=== PATIENT | male | born 1970 | race Caucasian/White ===

== ENCOUNTER 2017-05-13 03:15 | Inpatient (IN) | payer OTHER, MEDICAID ==
[~2017-05-13] VITALS: Ht 154.9 cm; Wt 60.3 kg
[2017-05-13 03:21] VITALS: BP 139/105
[2017-05-13] MEDS ORDERED: METO50TE2 PO (03:25)
--- NOTE | 2017-05-13 03:28 | NUR ---
TO ER BED 10
[2017-05-13] MEDS ORDERED: ACETAMINOPHEN 325 MG TAB PO ONE (03:30)
[2017-05-13] MEDS ORDERED: ACETAMINOPHEN 325 MG TAB ONE (03:32)
--- NOTE | 2017-05-13 03:35 | NUR ---
46 Y/O M W/C/O BODY ACHES, FEVER, AND COUGH X 2 DAYS. MED HX CHRONIC RENAL FAILURE, AND HTN. PT RECEIVES DIALYSIS M/W/F, SHUNT TO L ARM. CAM FRANCO MADE AWARE.
[2017-05-13 03:44] LABS: HEMATOCRIT 51.2 % (36-52); HEMOGLOBIN 16.6 g/dL (12.0-18.0); MEAN CORPUSCULAR HEMOGLOBIN 31 pg (27-31); MEAN CORPUSCULAR HGB CONC 33 g/dL (33-37); MEAN CORPUSCULAR VOLUME 96 fL (80-94); PLATELET COUNT (AUTO) 163 K/uL (140-450); RED BLOOD CELL COUNT(AUTO) 5.32 MIL/uL (4.20-6.10); RED CELL DISTRIBUTION WIDTH 14.9 % (11.6-13.7)
--- NOTE | 2017-05-13 03:50 | NUR ---
X-RAY AT BEDSIDE.
[2017-05-13 03:57] LABS: ALBUMIN 3.6 g/dL (3.4-5.0); ANION GAP 18.5 (8-16); CARBON DIOXIDE 26.7 mmol/L (21-32); POTASSIUM 5.2 mmol/L (3.5-5.1); TOTAL BILIRUBIN 0.9 mg/dL (0.0-1.0)
[2017-05-13 04:09] LABS: WHITE BLOOD COUNT (AUTO) 15.4 K/uL (4.8-10.8)
[2017-05-13 04:10] LABS: LYMPHOCYTES % (MANUAL) 7 % (20-46); MONOCYTES % (MANUAL) 5 % (5-12)
[2017-05-13 04:12] LABS: CREATININE 11.5 mg/dL (0.7-1.3)
[2017-05-13] MEDS ORDERED: SODIUM POLYSTYRENE 15 GM/60 ML UDBTL PO ONE (04:35)
[2017-05-13] MEDS ORDERED: INSULIN HUMAN REGULAR 100 UNITS/ML 10 ML VIAL IVP ONE (04:35)
[2017-05-13] MEDS ORDERED: DEXTROSE 50% 50 ML SYR IVP ONE ×2 (04:35→04:52)
[2017-05-13] MEDS ORDERED: IBUPROFEN 800 MG TAB PO ONE (04:35)
[2017-05-13] MEDS ORDERED: ALBUTEROL 0.083% 2.5 MG/3 ML NEBU INH ONE ×2 (04:35→05:45)
[2017-05-13] MEDS ORDERED: SEVE400T PO (04:44)
[2017-05-13] MEDS ORDERED: VALS80TA2 PO (04:44)
[2017-05-13] MEDS ORDERED: LEVOFLOXACIN 750 MG/D5W PREMIX 150 ML IV ONE ×2 (04:45→04:53)
[2017-05-13] MEDS ORDERED: NACL 0.9% 500 ML IV ONE (04:45)
--- NOTE | 2017-05-13 04:50 | NUR ---
PT UNABLE TO PRODUCE URINE. CAM FRANCO MADE AWARE.
[2017-05-13] MEDS ORDERED: IBUPROFEN 800 MG TAB ONE (04:51)
[2017-05-13] MEDS ORDERED: SODIUM POLYSTYRENE 15 GM/60 ML UDBTL ONE (04:53)
[2017-05-13] MEDS ORDERED: PROMETH/CODEINE 6.25-10MG/5ML 5 ML UDC PO ONE (05:10)
[2017-05-13] MEDS ORDERED: PROMETH/CODEINE 6.25-10MG/5ML 5 ML UDC ONE (05:13)
[2017-05-13] MEDS ORDERED: ONDANSETRON 4 MG/2 ML VIAL IVP PRN (05:15)
[2017-05-13] MEDS ORDERED: HYDROcodone/APAP 7.5/325 MG 1 TAB PO PRN (05:15)
[2017-05-13] MEDS ORDERED: ALBUTEROL SULFATE/IPRATROPIU 3 ML SOL IH PRN (05:20)
--- NOTE | 2017-05-13 05:29 | NUR ---
PT TRANSFERED TO FLOOR VIA [facility], ACCOMPANIED BY RN AND EMT.
--- NOTE | 2017-05-13 05:32 | NUR ---
REPORT GIVEN TO ELAN JOHNSTON AT BEDSIDE.
[2017-05-13 05:40] VITALS: BP 141/85
--- NOTE | 2017-05-13 05:40 | NUR ---
Admitted from ER, with chief complaint of COUGH, SUBJECTIVE FEVER, GEN WEAKNESS, BODY ACHES X2 DAYS, DX PNA. [employer] PI DEVELOPER SERVICE USED FOR TAJIK, YAMIL [id number]. 46 y/o, Male, Cooperative, AOX4, AMBULATES INDEPENDENTLY, ABLE TO VERBALIZE NEEDS. MANAGER MARKETING COMMUNICATION IN PLACE. PT DENIES CHEST PAIN, SOB OR S/S OF ACUTE DISTRESS. SPO2 98% ON ROOM AIR, RR 18 EVEN AND UNLABORED. BP 141/85, HR 115. SKIN INTACT, L AV FISTULA NOTED, BRUIT AND THRILL NOTED. IV ACCESS ASYMPTOMATIC, PATENT AND INTACT, IVPB FROM ER STILL INFUSING. DISCUSSED PLAN OF CARE WITH PT. PT REPORTS ANURIA, UNABLE TO COLLECT URINE SAMPLE. PT INSTRUCTED TO COLLECT SPUTUM SAMPLE. PT INSTRUCTED TO USE IS 10X PER HOUR. PT VERBALIZED UNDERSTANDING. oriented to call light, bed, phone,television, bathroom, smoking policy, visiting hours, procedures, ID bracelet on. Belongings list checked. ALL NEEDS MET. SAFETY MEASURES ENSURED. CALL LIGHT WITHIN REACH.
[2017-05-13 06:19] LABS: PROTHROMBIN TIME 12.6 secs (10.8-13.4)
--- NOTE | 2017-05-13 06:30 | NUR ---
CALLED DR GILL, CLARIFIED ORDER OF HYDRALAZINE 10MG IVP ONCE, REPORTED THAT PT'S BP IS 141/85, HR 115; DISCUSSED PT'S HOME MEDS. STATED TO NOT GIVE DUE MED HYDRALAZINE IVP ONCE, MD TO CONTINUE PT'S HOME MEDS.
[2017-05-13 06:44] LABS: FREE T4 (FREE THYROXINE) 1.02 ng/dL (0.76-1.46); PHOSPHORUS 5.3 mg/dL (2.5-4.9); THYROID STIMULATING HORMONE 0.32 uIU/mL (0.34-3.74)
[2017-05-13 07:00] LABS: CHOL/HDL RATIO 2.5 (1-4.5)
--- NOTE | 2017-05-13 07:10 | NUR ---
ENDORSED PLAN OF CARE TO AM NURSE. CONDITION STABLE.
[2017-05-13] MEDS ORDERED: hydrALAZINE 20 MG/ML VIAL IVP SCH (07:20)
--- NOTE | 2017-05-13 07:30 | NUR ---
REPORT RECEIVED FROM ARMORED CAR GUARD AND DRIVER NURSE. PT IS AWAKE, ALERT AND OX4, AMBULATES INDEPENDENTLY, ABLE TO VERBALIZE NEEDS. TELE MONITOR IN PLACE. PT DENIES PAIN. NO S/S OF ACUTE DISTRESS NOTED ON ROOM AIR. SKIN INTACT. LEFT AV FISTULA NOTED, BRUIT AND THRILL NOTED. IV CATH NOTED ON THE RIGHT FA 20G, PATENT AND INTACT. DISCUSSED PLAN OF CARE WITH PT, PT VERBALIZED UNDERSTANDING. SAFETY MEASURES ENSURED. CALL LIGHT WITHIN REACH.
[2017-05-13] MEDS ORDERED: ALBUTEROL SULFATE/IPRATROPIU 3 ML SOL IH ONE ×2 (07:55→13:12)
[2017-05-13 08:00] VITALS: BP 133/96
[2017-05-13] MEDS: ALBUTEROL SULFATE/IPRATROPIU 3 ML SOL IH SCH ×3 (08:07→19:35)
[2017-05-13] MEDS: DOCUSATE SODIUM 100 MG GELCAP PO SCH ×2 (09:00→20:07)
[2017-05-13] MEDS ORDERED: VALSARTAN 80 MG TAB PO SCH (09:00)
[2017-05-13] MEDS ORDERED: SEVELAMER CARBONATE 800 MG TAB PO SCH (09:00)
[2017-05-13] MEDS ORDERED: METOPROLOL SUCCINATE 50 MG TABER PO SCH (09:00)
--- NOTE | 2017-05-13 09:11 | NUR ---
PATIENT HAS BEEN SCREENED AND CATEGORIZED MODERATE NUTRITION RISK. PATIENT WILL BE SEEN WITHIN 3-5 DAYS OF ADMISSION. 05/15/17-05/17/[address]
[2017-05-13] MEDS ORDERED: METOPROLOL SUCCINATE 50 MG TABER PO ONE (09:48)
[2017-05-13] MEDS ORDERED: DOCUSATE SODIUM 100 MG GELCAP PO ONE (09:48)
[2017-05-13] MEDS ORDERED: VALSARTAN 80 MG TAB ONE (09:49)
[2017-05-13] MEDS ORDERED: LACTOBACILLUS RHAMNOSUS GG 1 EACH CAP ONE (09:49)
[2017-05-13] MEDS: LACTOBACILLUS RHAMNOSUS GG 1 EACH CAP PO SCH (09:55)
--- NOTE | 2017-05-13 09:55 | NUR ---
EXPLAINED TO PT THAT SPUTUM SAMPLE AND URINE SAMPLE ARE NEEDED FROM HIM. PT DENIES URINATION AND STATED NO PEE-PEE.
[2017-05-13 12:00] VITALS: BP 127/91
--- NOTE | 2017-05-13 12:30 | NUR ---
SPUTUM SAMPLE COLLECTED AND SENT TO LAB.
[2017-05-13] MEDS ORDERED: SEVELAMER CARBONATE 800 MG TAB PO ONE (12:31)
[2017-05-13] MEDS: SEVELAMER CARBONATE 800 MG TAB PO SCH ×3 (12:32→20:07)
[2017-05-13] MEDS: CLINDAMYCIN 600 MG in DEXTROSE 5% 50 ML IV SCH ×3 (12:32→23:15)
--- NOTE | 2017-05-13 15:35 | NUR ---
INCENTIVE SPIROMETER TEACHING DONE. PT VERBALIZED UNDERSTANDING. PT HAD EXCELLENT RETURN DEMONSTRATION.
[2017-05-13 16:00] VITALS: BP 139/97
[2017-05-13] MEDS: ACETAMINOPHEN 325 MG TAB PO PRN (16:59)
--- NOTE | 2017-05-13 19:20 | NUR ---
SPOKE WITH DIALYSIS NURSE ANTONIO OVER THE PHONE REGARDING HEMODIALYSIS ORDER PUT IN BY DR. GARCIA WITHOUT DETAIL. ANTONIO STATED SHE WILL CONTACT DR GARCIA REGARDING THE DETAIL OF THE ORDER.
--- NOTE | 2017-05-13 19:30 | NUR ---
ENDORSED PLAN OF CARE TO WREATH INSPECTOR NURSE. PT IN CONDITION STABLE.
--- NOTE | 2017-05-13 19:31 | NUR ---
Patient's Plan of Care was discussed and reviewed with MENTAL HEALTH TECHNICIAN: LAURENCE ALCARAZ
--- NOTE | 2017-05-13 19:32 | NUR ---
PATIENT IS CURRENTLY AWAKE ALERT ORIENTED TAMAZIGHT SPEAKING RESTING IN BED VITALS CHECKED WNL AT THIS TIME PATIENT HAS NO COMPLAINS OF PAIN AND DISCOMFORT.PATIENT IS ALSO AMBULATORY BUT ENCOURAGED TO ASK FOR HELP IF HE NEEDS TO. PATIENT INSTRUCTED TO GIVE SPUTUM C/S WHEN HE IS ABLE TO COUGH UP SOME PHLEGM PATIENT VERBALIZES UNDERSTANDING SPECIMEN CONTAINER CUP AT BEDSIDE. PATIENT EDUCATED TO USE THE INCENTIVE SPIROMETER RETURN DEMO DONE AND PATIENT VERBALIZES UNDERSTANDING.CALL LIGHT WITHIN REACH. WILL CONTINUE TO MONITOR.
[2017-05-13 20:00] VITALS: BP 104/51
[2017-05-13] MEDS: METOPROLOL 50 MG TAB PO SCH (20:07)
--- NOTE | 2017-05-13 23:26 | NUR ---
I CALLED RESIDENT HENRY MCFARLAND AND INFORMED HER THAT PATIENT VACCINATION ASSESSMENT ITS CHECKED WERE IT SAYS PATIENT QUALIFIES FOR PNA AND FLU VACCINE BUT, I DON'T SEE ANY VACCINES ORDERED IN HIS EMAR. SAID SHE WILL PUT THE ORDER FOR VACCINES IN.
[2017-05-14] VITALS: BP 121/81
[2017-05-14] MEDS ORDERED: INFLUENZA VIRUS VACCINE QUAD 0.5 ML SYR IMVAC SCH
[2017-05-14] MEDS ORDERED: PNEUMOCOCCAL VACCINE 23 MCG/0.5 ML VIAL IMVAC SCH
--- NOTE | 2017-05-14 00:35 | NUR ---
I CALLED [facility] AND I SPOKE TO MOOD AND I ASKED HER IF SHE IS AWARE THAT PATIENT IS HAVING DIALYSIS TODAY. ANTONIO SAID YES. I ASKED JESI ALVAREZ IF THERE IS A TIME WHEN PATIENT WILL GET HIS DIALYSIS DONE TODAY AND JESI ALVAREZ SAID IT WILL BE DONE BETWEEN 8-9 AM TODAY.
--- NOTE | 2017-05-14 00:44 | NUR ---
PATIENT IS SLEEPING AT THIS TIME.NEEDS MET WILL CONTINUE TO MONITOR.
--- NOTE | 2017-05-14 01:37 | NUR ---
PATIENT STABLE RESTING IN BED IN NO DISTRESS WILL CONTINUE TO MONITOR.CALL LIGHT WITHIN REACH.
--- NOTE | 2017-05-14 04:04 | NUR ---
PATIENT SLEEPING WELL IN BED NO DISTRESS NO PAIN OR DISCOMFORT NOTED.WILL CONTINUE TO MONITOR.
[2017-05-14] MEDS: CLINDAMYCIN 600 MG in DEXTROSE 5% 50 ML IV SCH ×4 (05:07→23:58)
--- NOTE | 2017-05-14 05:27 | NUR ---
PATIENT STABLE HAD HIS BLOOD DRAWN SITTING DOWN WATCHING TV.
--- NOTE | 2017-05-14 05:30 | NUR ---
I NOTIFIED EVENT TECHNICIAN KHUSHBOO TO BRIND A FEEDING PUMP AND FIBERSOUCE TF HE VERBALIZES UNDERSTANDING.
[2017-05-14] MEDS: ACETAMINOPHEN 325 MG TAB PO PRN ×3 (05:38→20:20)
[2017-05-14 06:57] LABS: HEMOGLOBIN 15.6 g/dL (12.0-18.0); MEAN CORPUSCULAR HGB CONC 33 g/dL (33-37)
[2017-05-14 06:58] LABS: HEMATOCRIT 47.4 % (36-52); MEAN CORPUSCULAR HEMOGLOBIN 32 pg (27-31); MEAN CORPUSCULAR VOLUME 96 fL (80-94); PLATELET COUNT (AUTO) 148 K/uL (140-450); RED BLOOD CELL COUNT(AUTO) 4.93 MIL/uL (4.20-6.10); RED CELL DISTRIBUTION WIDTH 14.6 % (11.6-13.7)
--- NOTE | 2017-05-14 07:18 | NUR ---
PATIENT STABLE REPORT ENDORSED TO ELAN MELLO AT BEDSIDE.
[2017-05-14 07:22] LABS: MAGNESIUM 2.1 mg/dL (1.8-2.4); PHOSPHORUS 7.4 mg/dL (2.5-4.9)
--- NOTE | 2017-05-14 07:30 | NUR ---
REPORT RECEIVED FROM LEARNING FACILITATOR NURSE. PT IS AWAKE, ALERT AND OX4, AMBULATES INDEPENDENTLY, ABLE TO VERBALIZE NEEDS. TELE MONITOR IN PLACE. PT DENIES PAIN. NO S/S OF ACUTE DISTRESS NOTED ON ROOM AIR. SKIN INTACT. LEFT AV FISTULA NOTED, BRUIT AND THRILL NOTED. IV CATH NOTED ON THE RIGHT FA 20G, PATENT AND INTACT. DISCUSSED PLAN OF CARE WITH PT, PT VERBALIZED UNDERSTANDING. SAFETY MEASURES ENSURED. CALL LIGHT WITHIN REACH.
[2017-05-14 07:38] LABS: ANION GAP 23.2 (8-16); CARBON DIOXIDE 23.3 mmol/L (21-32); POTASSIUM 5.5 mmol/L (3.5-5.1)
[2017-05-14] MEDS: ALBUTEROL SULFATE/IPRATROPIU 3 ML SOL IH SCH ×2 (07:38→20:27)
[2017-05-14 07:40] LABS: CREATININE 14.3 mg/dL (0.7-1.3)
[2017-05-14 08:00] VITALS: BP 144/99
[2017-05-14] MEDS: SEVELAMER CARBONATE 800 MG TAB PO SCH ×4 (08:28→20:19)
[2017-05-14] MEDS: LACTOBACILLUS RHAMNOSUS GG 1 EACH CAP PO SCH (08:28)
[2017-05-14] MEDS: DOCUSATE SODIUM 100 MG GELCAP PO SCH ×2 (08:29→20:19)
[2017-05-14] MEDS: METOPROLOL 50 MG TAB PO SCH ×2 (08:29→20:18)
--- NOTE | 2017-05-14 08:29 | NUR ---
SPOKE WITH DIALYSIS NURSE JONEL, TO HOLD METOPROLOL. PT GETTING DIALYSIS LATER TODAY.
[2017-05-14 09:18] LABS: LYMPHOCYTES % (MANUAL) 11 % (20-46); MONOCYTES % (MANUAL) 8 % (5-12)
--- NOTE | 2017-05-14 12:20 | NUR ---
PT IS GETTING DIALYSIS, NO DISTRESS NOTED.
--- NOTE | 2017-05-14 13:09 | NUR ---
PT C/O HEADACHE, TYLENOL IS GIVEN.
--- NOTE | 2017-05-14 15:00 | NUR ---
DIALYSIS HAS BEEN COMPLETED, 2200ML WAS REMOVED. VITALS TAKEN, NO S/S OF ACUTE DISTRESS.
[2017-05-14 17:49] VITALS: BP 122/80
[2017-05-14 19:37] LABS: ANION GAP 16.4 (8-16); CARBON DIOXIDE 27.9 mmol/L (21-32); POTASSIUM 4.3 mmol/L (3.5-5.1)
--- NOTE | 2017-05-14 19:39 | NUR ---
ENDORSED PT TO CBX OPERATOR NURSE, PT IN STABLE CONDITION.
--- NOTE | 2017-05-14 19:40 | NUR ---
RECEIVED REPORT AT BEDSIDE FROM DAY SHIFT NURSE. PT A/OX4, ON ROOM AIR, GEORGIAN SPEAKING. PT HAS IV TO RIGHT FOREARMS 20G, AND AV FISTULA TO LEFT ARM. SAFETY PRECAUTIONS IN PLACE. UPDATED BOARD. VITAL SIGNS WITHIN NORMAL LIMITS, PT DENIES PAIN. PT IN STABLE CONDITION, NO SIGNS OF DISTRESS NOTED. BED IN LOW POSITION, CALL LIGHT WITHIN REACH. WILL CONTINUE TO MONITOR.
[2017-05-14 19:41] LABS: CREATININE 9.9 mg/dL (0.7-1.3)
--- NOTE | 2017-05-14 20:20 | NUR ---
ADMINISTERED SCHEDULED MEDICATION, PT TOLERATED WELL. ALSO ADMINISTERED TYLENOL FOR MILD HEADACHE. PT IN STABLE CONDITION, NO SIGNS OF DISTRESS NOTED. BED IN LOW POSITION, CALL LIGHT WITHIN REACH. WILL CONTINUE TO MONITOR.
[2017-05-15] VITALS: BP 130/89
--- NOTE | 2017-05-15 | NUR ---
VITAL SIGNS WITHIN NORMAL LIMITS, PT DENIES PAIN. PT IN STABLE CONDITION, NO SIGNS OF DISTRESS NOTED. BED IN LOW POSITION, CALL LIGHT WITHIN REACH. WILL CONTINUE TO MONITOR.
[2017-05-15] MEDS: CLINDAMYCIN 600 MG in DEXTROSE 5% 50 ML IV SCH ×2 (06:11→11:39)
--- NOTE | 2017-05-15 07:18 | NUR ---
ASSUMED CONTINUITY OF CARE. NO SIGNS AND SYMPTOMS OF ACUTE DISTRESS NOTED. INITIAL ASSESSMENT DONE. FAMILIARIZED WITH SURROUNDINGS. EXPLAINED DIAGNOSIS, PLAN OF CARE, PAIN MANAGEMENT TEACHING, USE OF CALL LIGHT/BED/TV/BATHROOM. VERBALIZED UNDERSTANDING. CALL LIGHT WITHIN REACH.
--- NOTE | 2017-05-15 07:18 | NUR ---
ENDORSED PT IN STABLE CONDITION TO DAY SHIFT NURSE FOR CONTINUITY OF CARE.
--- NOTE | 2017-05-15 07:19 | NUR ---
Patient's Plan of Care was discussed and reviewed with DATA ANALYSIS ASSISTANT: GEORGE DUMONT
[2017-05-15] MEDS ORDERED: ALBUTEROL SULFATE/IPRATROPIU 3 ML SOL IH PRN (07:20)
[2017-05-15 08:00] VITALS: BP 137/99
[2017-05-15] MEDS: METOPROLOL 50 MG TAB PO SCH (08:32)
[2017-05-15] MEDS: DOCUSATE SODIUM 100 MG GELCAP PO SCH (08:32)
[2017-05-15] MEDS: SEVELAMER CARBONATE 800 MG TAB PO SCH ×2 (08:32→12:37)
[2017-05-15] MEDS: LACTOBACILLUS RHAMNOSUS GG 1 EACH CAP PO SCH (08:32)
[2017-05-15] MEDS ORDERED: LEVOFLOXACIN 500 MG/D5W PREMIX 100 ML IV SCH (09:00)
[2017-05-15 12:00] VITALS: BP 135/92
[2017-05-15 12:20] LABS: ANION GAP 19.8 (8-16); CARBON DIOXIDE 26.8 mmol/L (21-32); POTASSIUM 4.6 mmol/L (3.5-5.1)
[2017-05-15 12:24] LABS: MAGNESIUM 2.2 mg/dL (1.8-2.4); PHOSPHORUS 8.1 mg/dL (2.5-4.9)
[2017-05-15 12:28] LABS: CREATININE 11.7 mg/dL (0.7-1.3)
--- NOTE | 2017-05-15 12:28 | NUR ---
RECEIVED CRITICAL LAB VALUE FOR CREAT 11.7. REPORTED TO DR. MENDOSA AND INFORMED TREATING KAIT COOPER.
[2017-05-15 13:46] LABS: HEMATOCRIT 43.7 % (36-52); HEMOGLOBIN 14.4 g/dL (12.0-18.0); MEAN CORPUSCULAR HEMOGLOBIN 32 pg (27-31); MEAN CORPUSCULAR HGB CONC 33 g/dL (33-37); MEAN CORPUSCULAR VOLUME 96 fL (80-94); PLATELET COUNT (AUTO) 173 K/uL (140-450); RED BLOOD CELL COUNT(AUTO) 4.56 MIL/uL (4.20-6.10); RED CELL DISTRIBUTION WIDTH 14.7 % (11.6-13.7); WHITE BLOOD COUNT (AUTO) 12.1 K/uL (4.8-10.8)
[2017-05-15 14:04] LABS: LYMPHOCYTES % (MANUAL) 7 % (20-46); MONOCYTES % (MANUAL) 2 % (5-12)
[2017-05-15] MEDS ORDERED: [UNRECOGNIZED DRUG - CODE] PO (14:38)
[2017-05-15] MEDS ORDERED: LEVO250T71 PO (14:38)
[2017-05-15] MEDS ORDERED: LACT1.4C PO (14:39)
--- NOTE | 2017-05-15 15:00 | NUR ---
DR. MALDONADO WENT INSIDE PT. ROOM TOGETHER WITH RAMIRO PAGE -ELAN AND EXPLAINED TO PT. AND PT. ABOUT D/C INSTRUCTIONS AND TEACHING, DENIA MEYERS FOLLOW -UP ON 2017 AT 0900, PRESCRIPTION LIST EDUCATION. PT. AND PT. VERBALIZED UNDERSTANDING.
--- NOTE | 2017-05-15 15:40 | NUR ---
D/C HOME VIA WHEELCHAIR ACCOMPANIED BY PT. . AWAKE, ALERT, AND ORIENTED X4. SPEECH CLEAR. NO C/O PAIN. NO SOB, NOTED. IN STABLE CONDITION. INFORMED CHARGE NURSE SURAJ MCDONALD.
== END 2017-05-15 15:40 | disposition home or self-care (01) | DRG 177 ==
LOC: MED 03:15 → MTU 05:18
PROVIDERS: ADMIT Family Medicine Sports Medicine; ATTEND Family Medicine Sports Medicine
PROC: 5A1D70Z Performance of Urinary Filtration, Intermittent, Less than 6 Hours Per Day (ICD-10-PCS; principal; 2017-05-13)
DX: J69.0 Pneumonitis due to inhalation of food and vomit (principal); N17.0 Acute kidney failure with tubular necrosis; N18.6 End stage renal disease; I12.0 Hypertensive chronic kidney disease with stage 5 chronic kidney disease or end stage renal disease; E87.1 Hypo-osmolality and hyponatremia; Z99.2 Dependence on renal dialysis; E87.5 Hyperkalemia; E87.8 Other disorders of electrolyte and fluid balance, not elsewhere classified; E83.39 Other disorders of phosphorus metabolism; E02 Subclinical iodine-deficiency hypothyroidism; D63.8 Anemia in other chronic diseases classified elsewhere
CPT/HCPCS: 36415; 71045; 80048; 80053; 83036; 83605; 83735; 83880; 84100; 84439; 84443; 84484; 85025; 85610; 85730; 87040; 87070; 87081; 87205; 87804; 94640; 96365; 96375; 99285; J1815; J1956; J3490; J7030; J7060; J7613; J7620; Q0092